=== PATIENT | male | born 1950 | race Caucasian/White ===

== ENCOUNTER 2019-06-11 17:26 | Emergency (ER) | payer MEDICARE, OTHER ==
[~2019-06-11] VITALS: Ht 182.9 cm; Wt 114.8 kg
--- NOTE | 2019-06-11 17:40 | NUR ---
[id number], FROM HOME, COUGH AND FEVER x 2 DAYS. PATIENT A/OX3, LETHARGIC BUT VERBALLY RESPONSIVE, AT BEDSIDE. CHANGED INTO GOWN, ATTACHED TO THE GRAIN DRIER. FELT WARM TO TOUCH. WILL MONITOR.
[2019-06-11] MEDS ORDERED: ACETAMINOPHEN ES 500 MG TABLET ONE (17:51)
[2019-06-11] MEDS ORDERED: ACETAMINOPHEN ES 500 MG TABLET PO ONE (18:00)
[2019-06-11 18:10] LABS: BASOPHILS % (AUTO) 0.2 % (0.0-2.0); EOSINOPHILS % (AUTO) 0.8 % (0.0-6.0); HEMATOCRIT 43 % (39-51); HEMOGLOBIN 14.2 g/dL (13.5-17.5); LYMPHOCYTES # (AUTO) 0.6 /CMM (0.8-4.8); LYMPHOCYTES % (AUTO) 10.7 % (20.0-44.0); MEAN CORPUSCULAR HGB CONC 33 g/dl (31.0-36.0); MEAN CORPUSCULAR VOLUME 93 fL (80-96); MONOCYTES # (AUTO) 0.7 /CMM (0.1-1.30); MONOCYTES % (AUTO) 12.6 % (2.0-12.0); NEUTROPHILS # (AUTO) 4.3 /CMM (1.8-8.9); NEUTROPHILS % (AUTO) 75.7 % (43.0-81.0); PLATELET COUNT (AUTO) 137 /CMM (150-450); RED BLOOD CELL COUNT(AUTO) 4.65 MIL/uL (4.5-6.0); WHITE BLOOD COUNT (AUTO) 5.7 K/uL (4.3-11.0)
[2019-06-11 18:26] LABS: CALCIUM, SERUM 8.4 mg/dL (8.5-10.1); CARBON DIOXIDE 30 mmol/L (21-32); CHLORIDE 104 mmol/L (98-107); CREATININE 1.4 mg/dL (0.6-1.3); GLUCOSE 132 mg/dL (74-106); POTASSIUM 4.4 mmol/L (3.5-5.1); SODIUM SERUM 137 mmol/L (136-145); UREA NITROGEN, BLOOD 16 mg/dL (7-18)
[2019-06-11 18:41] LABS: ALANINE AMINOTRANSFERASE 20 U/L (12-78); ALBUMIN 2.9 g/dL (3.4-5.0); ALKALINE PHOSPHATASE 52 U/L (46-116); ASPARTATE AMINOTRANSFERASE 24 U/L (15-37); B-TYPE NATRIURETIC PEPTIDE 1570 PG/ML (0-125); BILIRUBIN,DIRECT 0.2 mg/dL (0.0-0.2); BILIRUBIN,TOTAL 0.4 mg/dL (0.2-1.0); TOTAL PROTEIN, SERUM 6.8 g/dL (6.4-8.2)
[2019-06-11 18:42] LABS: APPEARANCE,URINE Clear (CLEAR); BILIRUBIN,URINE Negative (NEGATIVE); BLOOD, URINE Trace-intact Ery/uL (NEGATIVE); COLOR,URINE Yellow (YELLOW); KETONES,URINE Trace (NEGATIVE); LEUKOCYTE ESTERASE ,URINE Negative (NEGATIVE); NITRITE, URINE Negative (NEGATIVE); PROTEIN,URINE Negative (NEGATIVE); UGLUCOSE Negative (NEGATIVE)
[2019-06-11 18:47] LABS: BACTERIA,URINE Few /HPF (None Seen); SQUAMOUS EPITHELIAL CELL,UR Few /HPF (None Seen); WBC,URINE 0-2 /HPF (0-3)
[2019-06-11] MEDS ORDERED: IV NS 0.9% 500 ML BAG IV ONE (19:00)
[2019-06-11 19:14] LABS: EOSINOPHILS % (MANUAL) 1 % (0-4); LYMPHOCYTES % (MANUAL) 12 % (16-48); MONOCYTES % (MANUAL) 9 % (0-11.0); NEUTROPHILS % (MANUAL) 78 (42-76)
--- NOTE | 2019-06-11 19:23 | NUR ---
CALLED [facility] FOR BED, WAS TOLD TO CALL AT 1930
--- NOTE | 2019-06-11 19:28 | NUR ---
ENDORSED TO LANDON OSBORN LYNDA.
[2019-06-11] MEDS ORDERED: FUROSEMIDE 40 MG/4 ML VIAL IV ONE (20:00)
[2019-06-11] MEDS ORDERED: FUROSEMIDE 40 MG/4 ML VIAL ONE (20:03)
--- NOTE | 2019-06-11 20:11 | NUR ---
PT ON 4L NASAL CANNULA 02 98%
--- NOTE | 2019-06-11 20:32 | NUR ---
SPOKE TO KENRICK AT [facility], WAS TOLD TO EXPECT CALL BACK SHORTLY REGARDING ALL TRANSFER INFO
--- NOTE | 2019-06-11 21:10 | NUR ---
PT WILL BE TRANSFERRED TO [facility] ACCEPTING MD: DR. CASTRO ETA: [id number]
--- NOTE | 2019-06-11 21:11 | NUR ---
GAVE REPORT TO ISAIAH ALARCON FROM [facility] FOR [facility]. [phone]
[2019-06-11] MEDS ORDERED: NITROGLYCERIN 0.4 MG/TAB BOTTLE ONE (21:36)
[2019-06-11] MEDS ORDERED: ASPIRIN 81 MG TAB.CHEW ONE (21:36)
--- NOTE | 2019-06-11 21:41 | NUR ---
GAVE REPORT TO ANNE MARIE Oconnell RN. FROM [facility] #[phone]
[2019-06-11 21:43] VITALS: BP 187/90
--- NOTE | 2019-06-11 21:44 | NUR ---
CCRN AND equity manager AT THE BED SIDE TO PICK THE PT. PT WAS MEDICATED BY ASA AND NITRO PER CCRN'S REQUEST AND PA'S ORDER.
--- NOTE | 2019-06-11 21:50 | NUR ---
PT TRANSFERED TO [facility]. PICKED UP BY KELSY UNDER ACLS PROTOCOL.
[2019-06-11] MEDS ORDERED: NITROGLYCERIN 0.4 MG/TAB BOTTLE SL ONE (22:00)
[2019-06-11] MEDS ORDERED: ASPIRIN 81 MG TAB.CHEW PO ONE (22:00)
== END 2019-06-11 21:54 | disposition short-term general hospital (02) ==
LOC: ER 17:28
DX: J40 Bronchitis, not specified as acute or chronic (principal); R09.02 Hypoxemia; I11.0 Hypertensive heart disease with heart failure; I50.9 Heart failure, unspecified; R79.89 Other specified abnormal findings of blood chemistry; E78.5 Hyperlipidemia, unspecified; G40.909 Epilepsy, unspecified, not intractable, without status epilepticus
CPT/HCPCS: 36415; 71045; 80048; 80076; 81001; 83605; 83880; 84145; 84484; 85025; 85730; 87040 ×2; 87086; 87804 ×2; 93005; 96374; 99285; J1940; J7040; 81000-TC

== ENCOUNTER 2022-06-28 23:53 | Inpatient (IN) | payer OTHER ==
[~2022-06-28] VITALS: Ht 180.3 cm; Wt 121.1 kg
[~2022-06-28 23:53] MED LIST: ALLO100T PO; AMOX1TAB16 PO; ATOR40TA PO; BISO5TAB20 PO; CHOL200013 PO; DIVA-76 PO; SPIR25TA6 PO; TORS20TA3 PO; WARF-68 PO
--- NOTE | 2022-06-28 23:55 | NUR ---
[id number] from home, glf x2 today, felt weak and fell x 1hr ago on coumadine, denies KO. Patient is AAOX4. Able to make needs known. Patient came with abrasions on the right lower leg. Placed comfortably in bed. Vitals checked.
[2022-06-29] MEDS ORDERED: TDAP [DIPH/PERTUSSIS/TET] 0.5 ML VIAL IM ONE ×2 (00:30→00:51)
[2022-06-29 01:05] LABS: BASOPHILS % (AUTO) 0.4 % (0.0-2.0); EOSINOPHILS % (AUTO) 0.1 % (0.0-6.0); HEMATOCRIT 41 % (39-51); HEMOGLOBIN 13.6 g/dL (13.5-17.5); LYMPHOCYTES # (AUTO) 1.1 K/uL (0.8-4.8); MEAN CORPUSCULAR HGB CONC 33 g/dl (31.0-36.0); MEAN CORPUSCULAR VOLUME 96 fL (80-96); MONOCYTES % (AUTO) 12.8 % (2.0-12.0); NEUTROPHILS % (AUTO) 73.7 % (43.0-81.0); PLATELET COUNT (AUTO) 129 K/uL (150-450); RED BLOOD CELL COUNT(AUTO) 4.27 MIL/uL (4.5-6.0); WHITE BLOOD COUNT (AUTO) 8.1 K/uL (4.3-11.0)
[2022-06-29 01:29] LABS: CALCIUM, SERUM 8.9 mg/dL (8.5-10.1); CARBON DIOXIDE 30 mmol/L (21-32); CHLORIDE 106 mmol/L (98-107); CREATININE 1.8 mg/dL (0.6-1.3); GLUCOSE 155 mg/dL (74-106); SODIUM SERUM 141 mmol/L (136-145); UREA NITROGEN, BLOOD 32 mg/dL (7-18)
--- NOTE | 2022-06-29 01:30 | NUR ---
LEFT FOR CT
--- NOTE | 2022-06-29 01:43 | NUR ---
CAME BACK FROM CT DEPT
[2022-06-29 01:44] LABS: ALANINE AMINOTRANSFERASE 16 U/L (12-78); ALBUMIN 2.3 g/dL (3.4-5.0); ALKALINE PHOSPHATASE 38 U/L (46-116); ASPARTATE AMINOTRANSFERASE 46 U/L (15-37); BILIRUBIN,DIRECT 0.2 mg/dL (0.0-0.2); BILIRUBIN,TOTAL 0.5 mg/dL (0.2-1.0); TOTAL PROTEIN, SERUM 6.3 g/dL (6.4-8.2)
[2022-06-29 01:47] LABS: POTASSIUM 6.3 mmol/L (3.5-5.1)
[2022-06-29] MEDS ORDERED: SODIUM POLYSTYRENE SULFONATE 15 G/60 ML BOTTLE PO ONE (02:00)
[2022-06-29] MEDS ORDERED: SODIUM BICARBONATE SYR 50 MEQ/50 ML DISP.SYRIN IV ONE (02:00)
[2022-06-29] MEDS ORDERED: INSULIN REGULAR, HUMAN 100 UNIT/ML 10 ML VIAL IV ONE (02:00)
[2022-06-29] MEDS ORDERED: DEXTROSE 50%-WATER 50 ML DISP.SYRIN IV ONE (02:00)
[2022-06-29] MEDS ORDERED: CALCIUM CHLORIDE 1,000 MG/10 ML DISP.SYRIN IV ONE (02:00)
[2022-06-29] MEDS ORDERED: ALBUTEROL FS 2.5 MG/3 ML VIAL.NEB NEB ONE (02:00)
--- NOTE | 2022-06-29 02:04 | NUR ---
IV CANNULA G20 INSERTED ON LEFT FA.
--- NOTE | 2022-06-29 02:10 | NUR ---
COVID SWAB DONE AND SENT TO LAB
[2022-06-29] MEDS ORDERED: INSULIN REGULAR, HUMAN 100 UNIT/ML 10 ML VIAL ONE (02:14)
[2022-06-29] MEDS ORDERED: SODIUM BICARBONATE SYR 50 MEQ/50 ML DISP.SYRIN ONE (02:14)
[2022-06-29] MEDS ORDERED: DEXTROSE 50%-WATER 50 ML DISP.SYRIN ONE (02:14)
[2022-06-29] MEDS ORDERED: CALCIUM CHLORIDE 1,000 MG/10 ML DISP.SYRIN ONE (02:15)
[2022-06-29] MEDS ORDERED: ALBUTEROL FS 2.5 MG/3 ML VIAL.NEB ONE (02:33)
[2022-06-29] MEDS ORDERED: SODIUM POLYSTYRENE SULFONATE 15 G/60 ML BOTTLE ONE (02:46)
[2022-06-29] MEDS ORDERED: LIDOCAINE 2% JEL UROJET 10 ML MM ONE (02:51)
[2022-06-29] MEDS ORDERED: DIVA-78 PO (03:29)
[2022-06-29] MEDS ORDERED: GABA600T12 PO (03:29)
[2022-06-29] MEDS ORDERED: FURO-145 PO (03:29)
[2022-06-29] MEDS ORDERED: BISO5TAB20 PO (03:29)
[2022-06-29] MEDS ORDERED: SPIR25TA6 PO (03:29)
[2022-06-29] MEDS ORDERED: MULT-754 PO (03:29)
[2022-06-29] MEDS ORDERED: WARF-68 PO (03:29)
[2022-06-29] MEDS ORDERED: WARF1TAB86 PO (03:29)
[2022-06-29] MEDS ORDERED: ATOR40TA PO (03:29)
[2022-06-29] MEDS ORDERED: ALLO100T PO (03:29)
[2022-06-29] MEDS ORDERED: CHOL50009 (03:29)
[2022-06-29] MEDS ORDERED: CHOL100043 (03:29)
[2022-06-29] MEDS ORDERED: TORS20TA3 PO (03:34)
[2022-06-29 03:43] LABS: BILIRUBIN,URINE NEGATIVE (NEGATIVE); COLOR,URINE YELLOW (YELLOW); LEUKOCYTE ESTERASE ,URINE NEGATIVE (NEGATIVE); NITRITE, URINE NEGATIVE (NEGATIVE); PROTEIN,URINE TRACE mg/dl (NEGATIVE); UGLUCOSE NEGATIVE (NEGATIVE); UROBILINOGEN,URINE 0.2 EU/dL (0.2)
[2022-06-29 03:58] LABS: BACTERIA,URINE Rare /HPF (None Seen); RBC,URINE 0-2 /HPF (0-2); SQUAMOUS EPITHELIAL CELL,UR Few /HPF (None Seen); WBC,URINE 0-2 /HPF (0-3)
--- NOTE | 2022-06-29 06:30 | NUR ---
convalescent sitter at bedside
[2022-06-29 07:01] LABS: BASOPHILS # (AUTO) 0.1 K/uL (0.0-0.2); BASOPHILS % (AUTO) 0.7 % (0.0-2.0); EOSINOPHILS % (AUTO) 0.3 % (0.0-6.0); HEMATOCRIT 40 % (39-51); HEMOGLOBIN 12.9 g/dL (13.5-17.5); LYMPHOCYTES # (AUTO) 1.7 K/uL (0.8-4.8); LYMPHOCYTES % (AUTO) 21.5 % (20.0-44.0); MEAN CORPUSCULAR HGB CONC 33 g/dl (31.0-36.0); MEAN CORPUSCULAR VOLUME 96 fL (80-96); MONOCYTES # (AUTO) 1.4 K/uL (0.1-1.30); MONOCYTES % (AUTO) 17.5 % (2.0-12.0); NEUTROPHILS # (AUTO) 4.8 K/uL (1.8-8.9); PLATELET COUNT (AUTO) 130 K/uL (150-450); RED BLOOD CELL COUNT(AUTO) 4.13 MIL/uL (4.5-6.0)
[2022-06-29 07:13] LABS: CALCIUM, SERUM 9.3 mg/dL (8.5-10.1); CREATININE 1.5 mg/dL (0.6-1.3); POTASSIUM 4.7 mmol/L (3.5-5.1)
[2022-06-29 07:21] LABS: ALBUMIN 2.2 g/dL (3.4-5.0); BILIRUBIN,TOTAL 0.4 mg/dL (0.2-1.0); TOTAL PROTEIN, SERUM 6.2 g/dL (6.4-8.2)
[2022-06-29] MEDS ORDERED: FOLI0.4T6 PO (07:57)
[2022-06-29] MEDS ORDERED: VITA1TAB56 PO (07:57)
[2022-06-29] MEDS ORDERED: CHOL200059 PO (07:57)
[2022-06-29 08:16] LABS: THYROID STIMULATING HORMONE 1.483 uIU/mL (0.358-3.74)
--- NOTE | 2022-06-29 09:54 | NUR ---
ROOM 110
--- NOTE | 2022-06-29 10:26 | NUR ---
REPORT GIVEN TO KAROLINA DA SILVA RN FOR LYNDA
--- NOTE | 2022-06-29 10:45 | NUR ---
TELE ADMISSION RN NOTES RECEIVED PATIENT VIA GURNEY FROM EMERGENCY ROOM. PATIENT ALERT AND ORIENTED X4, DENIES ANY PAIN, ON RA SATING @98%, NO SOB NOTED, RESPIRATION EVEN AND UNLABORED, NOT IN DISTRESS. LEFT ARM PERIPHERAL IV LINE NOTED PATENT AND INTACT, STARTED 1/2 NS @70ML HR, MD ORDERED. RIGHT ELBOW ABRASION NOTED, RIGHT LOWER LEG SKIN TEAR NOTED, BLE EDEMA NOTED, WOUND CARE CONSULT ORDERED, PICTURES TAKEN. VS T 98.1 HR 71 RR 20 BP 119/72 02 SAT 98% RA. BED BATH GIVEN, CHANGED TO A NEW GOWN, CALL LIGHT WITHIN REACH. BED IN LOWEST POSITION, BED ALARM ON. SAFETY MEASURES IN PLACED. PATIENT'S REQUESTED TO BE TRANSFER TO [place], JOB FORWARDER INFORMED. WILL CONTINUE PLAN OF CARE.
[2022-06-29] MEDS ORDERED: ACETAMINOPHEN 650 MG/20.3 ML UDC NG PRN (12:30)
[2022-06-29] MEDS ORDERED: ACETAMINOPHEN 325 MG TABLET PO PRN (12:30)
[2022-06-29] MEDS: IV 1/2NS 1000 ML 1,000 ML IV PRN (13:02)
[2022-06-29 16:00] VITALS: BP 102/65
[2022-06-29 17:55] LABS: BAND % (MANUAL) 4 % (0.0-5.0); EOSINOPHILS % (MANUAL) 1 % (0-4); LYMPHOCYTES % (MANUAL) 20 % (16-48); MONOCYTES % (MANUAL) 11 % (0-11.0); NEUTROPHILS % (MANUAL) 64 (42-76)
--- NOTE | 2022-06-29 18:54 | NUR ---
TELE CLOSING RN NOTES: PATIENT ALERT AND AWAKE, TALKING TO THE ON THE CELLPHONE, PATIENT ALERT AND ORIENTED X4, DENIES ANY PAIN AT THIS MOMENT. ON RA SATING AT 97%, NO SOB NOTED, RESPIRATION EVEN AND UNLABORED, NOT IN DISTRESS. LEFT ARM PERIPHERAL IV LINE NOTED PATENT AND INTACT, WITH 1/2 NS @75ML/HR. MESSAGE MD TO RECONCILE MEDICATIONS. AWAITING FOR RESPOND. INFORMED CASE PEDROLUISITO REGARDING PATIENT'W REQUEST REGARDING PATIENT WANT'S TO TRANSFERRED TO [place], GAVE [employer] MANAGER SHIP PHONE NUMBER TO MESSI SCALE OPERATOR. CALL LIGHT WITHIN REACH. BED IN LOWEST POSITION, BED ALARM ON. SAFETY MEASURES IN PLACED. WILL ENDORSE TO FIELD CHECKER NURSE FOR LYNDA. Addendum: 06/29/22 at 1859 by KAROLINA GAR RN ON TELE MONITORING WITH SR HR 76.
--- NOTE | 2022-06-29 19:30 | NUR ---
AGRONOMY TECHNICIAN OPEN NOTE: ALERT AND ORIENTED X3. UNLABORED BREATHING AT ROOM AIR, SATING AT 98 %. LEFT ARM WITH 1/2 NS AT 75 ML/HR, SITE WITH NO S/S OF COMPLICATIONS. ON TELE MONITOR WITH SINUS RHYTHM. TELE OPEN NOTE: OBTUNDED. TRACH WITH VENT AT PRESCRIBED SETTINGS. TELE READING [facility] ELEVATED SEMI-FOWLERS POSITION. BED IS IN LOW POSITION, LOCKED, EXIT ALARM ON, BILATERAL HALF SIDE RAILS UP X2. CALL LIGHT WITHIN REACH. Addendum: 06/30/22 at 0653 by TR HUDSON RN AGRONOMY TECHNICIAN OPEN NOTE: ALERT AND ORIENTED X3. UNLABORED BREATHING AT ROOM AIR, SATING AT 98 %. LEFT ARM WITH 1/2 NS AT 75 ML/HR, SITE WITH NO S/S OF COMPLICATIONS. ON TELE MONITOR WITH SINUS RHYTHM. TELE READING [facility] ELEVATED SEMI-FOWLERS POSITION. BED IS IN LOW POSITION, LOCKED, EXIT ALARM ON, BILATERAL HALF SIDE RAILS UP X2. CALL LIGHT WITHIN REACH.
[2022-06-29 20:00] VITALS: BP 105/62
[2022-06-29] MEDS: GABAPENTIN 300 MG CAPSULE PO SCH (20:27)
[2022-06-29] MEDS: DIVALPROEX SODIUM 500 MG TABLET.DR PO SCH (20:28)
[2022-06-30] VITALS: BP 108/65
[2022-06-30] MEDS: IV 1/2NS 1000 ML 1,000 ML IV PRN (02:56)
[2022-06-30 04:00] VITALS: BP 124/64
--- NOTE | 2022-06-30 06:55 | NUR ---
ELECTRICAL LINEWORKER CLOSING NOTE: ALERT AND ORIENTED X3. UNLABORED BREATHING AT ROOM AIR, SATING AT 98 %. LEFT ARM WITH 1/2 NS AT 75 ML/HR, SITE WITH NO S/S OF COMPLICATIONS. ON TELE MONITOR WITH SINUS RHYTHM. KEPT CLEAN AND DRY. CONDOM CATHETER WITH YELLOW URINE. DECLINES PAIN OR DISCOMFORT. HOB ELEVATED SEMI-FOWLERS POSITION. BED IS IN LOW POSITION, LOCKED, EXIT ALARM ON, BILATERAL HALF SIDE RAILS UP X2. CALL LIGHT WITHIN REACH.
[2022-06-30 07:00] LABS: BASOPHILS % (AUTO) 0.4 % (0.0-2.0); EOSINOPHILS % (AUTO) 1.6 % (0.0-6.0); HEMATOCRIT 41 % (39-51); HEMOGLOBIN 13.5 g/dL (13.5-17.5); LYMPHOCYTES # (AUTO) 1.2 K/uL (0.8-4.8); LYMPHOCYTES % (AUTO) 16.3 % (20.0-44.0); MEAN CORPUSCULAR HGB CONC 33 g/dl (31.0-36.0); MEAN CORPUSCULAR VOLUME 96 fL (80-96); MONOCYTES # (AUTO) 0.9 K/uL (0.1-1.30); NEUTROPHILS # (AUTO) 4.9 K/uL (1.8-8.9); NEUTROPHILS % (AUTO) 68.7 % (43.0-81.0); PLATELET COUNT (AUTO) 136 K/uL (150-450); RED BLOOD CELL COUNT(AUTO) 4.27 MIL/uL (4.5-6.0); WHITE BLOOD COUNT (AUTO) 7.2 K/uL (4.3-11.0)
[2022-06-30 07:59] LABS: ALBUMIN 2.1 g/dL (3.4-5.0); BILIRUBIN,TOTAL 0.5 mg/dL (0.2-1.0); CALCIUM, SERUM 8.5 mg/dL (8.5-10.1); CREATININE 1.2 mg/dL (0.6-1.3); POTASSIUM 4.4 mmol/L (3.5-5.1); TOTAL PROTEIN, SERUM 6.2 g/dL (6.4-8.2)
[2022-06-30 08:00] VITALS: BP 123/69
[2022-06-30 08:22] LABS: THYROID STIMULATING HORMONE 4.67 uIU/mL (0.358-3.74)
--- NOTE | 2022-06-30 08:39 | NUR ---
RN NOTE PER MD ORDER, PATIENT CAN BE DISCHARGED AFTER RETURNING FROM CAROTID DUPLEX IMAGING APPOINTMENT AT 0900.
[2022-06-30] MEDS ORDERED: CHOLECALCIFEROL 1,000 UNIT TABLET (VIT D3) PO SCH (09:00)
[2022-06-30] MEDS ORDERED: FOLIC ACID 1 MG TABLET PO SCH (09:00)
[2022-06-30] MEDS ORDERED: ALLOPURINOL 100 MG TABLET PO SCH (09:00)
[2022-06-30] MEDS ORDERED: ATORVASTATIN 40 MG TABLET PO SCH (09:00)
[2022-06-30] MEDS ORDERED: BISOPROLOL FUMARATE 5 MG TABLET PO SCH (09:00)
[2022-06-30] MEDS ORDERED: VITAMIN B COMP W-C 1 TAB TABLET PO SCH (09:00)
[2022-06-30] MEDS ORDERED: MULTIVITAMINS,THERAGRAN 1 UDTAB TABLET PO SCH (09:00)
[2022-06-30] MEDS ORDERED: ATENOLOL 25 MG TABLET PO SCH (09:00)
--- NOTE | 2022-06-30 09:53 | NUR ---
WOUND CARE CONSULT: PT PRESENTS WITH SOME AREAS OF DISCOLORATION ON BUTTOCKS (PT FELL AT HOME), RT ELBOW DRY ABRASION AND RT LOWER LEG ABRASIONS, PRESENT ON ADMISSION. RECOMMENDATIONS MADE FOR WOUND CARE AND SKIN PROTECTION. DISCUSSED WITH NURSING STAFF. IN AGREEMENT WITH PLAN OF CARE. Addendum: 06/30/22 at 0955 by PHILLIP BAEZ WNDNU Amended: Links added.
[2022-06-30] MEDS ORDERED: Z GUARD REMEDY 4 OZ OINT TP SCH (10:00)
--- NOTE | 2022-06-30 10:26 | NUR ---
RN NOTE CAROTID DUPLEX IMAGING COMPLETE. PHYSICAL THERAPY IS WITH THE PATIENT NOW.
[2022-06-30] MEDS: DIVALPROEX SODIUM 500 MG TABLET.DR PO SCH (10:39)
--- NOTE | 2022-06-30 11:22 | NUR ---
RN NOTE PER PHYSICAL THERAPY, PATIENT CANNOT STAND UP , NEEDS MAX ASSIST TO GET OUT OF BED AND NOT ABLE TO STEP. THE CAROTID DUPLEX IMAGING PERFORMED, RECOMMENDS CT AND MRI. NOTIFIED DR SAMUEL. CHARGE NURSE AWARE.
--- NOTE | 2022-06-30 13:20 | NUR ---
RN NOTE PER DR SAMUEL, PATIENT CAN BE DISCHARGED HOME. CONTACTED RACHELL REYES, ESTIMATED TIME OF MARKET RESEARCH LEAD IS 1430. Addendum: 06/30/22 at 1333 by LANDON MEAD RN DISREGARD, PATIENT WILL BE DISCHARGED TO SNF PER INFORMATION ANALYST.
[2022-06-30 16:00] VITALS: BP 118/67
--- NOTE | 2022-06-30 16:54 | NUR ---
REPORT GIVEN TO KRISTIE COLON FROM [facility].
[2022-06-30] MEDS: GABAPENTIN 300 MG CAPSULE PO SCH (18:53)
--- NOTE | 2022-06-30 19:00 | NUR ---
RN NOTE PATIENT DISCHARGED VIA AMBULANCE CREW, IV REMOVED, CATHETER TIP IN PLACE, NO SIGNS OF BLEEDING. EDMONDSON INTACT DRAINING YELLOW URINE VIA GRAVITY. ALL VITALS WITHIN NORMAL LIMITS. DISCHARGE PACKET GIVEN TO AMBULANCE CREW WITH PATIENT BELONGINGS. CHARGE NURSE AWARE.
== END 2022-06-30 21:55 | DRG 640 ==
LOC: ER 23:56 → TELE1 06-29 10:28 → MEDSG1 06-30 10:30
PROVIDERS: ADMIT Internal Medicine; ATTEND Internal Medicine
DX: E86.0 Dehydration (principal); N17.0 Acute kidney failure with tubular necrosis; E78.5 Hyperlipidemia, unspecified; E87.5 Hyperkalemia; G40.909 Epilepsy, unspecified, not intractable, without status epilepticus; I11.0 Hypertensive heart disease with heart failure; I50.9 Heart failure, unspecified; Z79.01 Long term (current) use of anticoagulants; Z79.899 Other long term (current) drug therapy; T50.0X5A Adverse effect of mineralocorticoids and their antagonists, initial encounter; Y92.9 Unspecified place or not applicable; M10.9 Gout, unspecified; Z91.81 History of falling; I87.2 Venous insufficiency (chronic) (peripheral); I35.0 Nonrheumatic aortic (valve) stenosis; Z95.3 Presence of xenogenic heart valve; W19.XXXA Unspecified fall, initial encounter; E66.9 Obesity, unspecified; Z68.37 Body mass index [BMI] 37.0-37.9, adult
CPT/HCPCS: 36415; 70450-TC; 71045-TC; 76770-TC; 80048-TC; 80053-TC; 80076-TC; 81001; 82962-TC; 84443-TC; 84484-TC; 85025-TC; 85610-TC; 85730-TC; 87081-TC; 90715; 93307-TC; 93880-TC; 97112-TC; 97530-TC; A4349; A6253; C9803; G0378; J1815; J3490